=== PATIENT | female | born 1940 | race Caucasian/White ===

== ENCOUNTER 2018-04-27 13:59 | Emergency (ER) | payer MEDICARE, MEDICAID ==
[2018-04-27 14:13] VITALS: TEMP 97.5
--- NOTE | 2018-04-27 14:58 | C.PDOC ---
History Of Present Illness 77 y/o female presents to the ED for evaluation s/p fall sustained just prior to arrival. Patient states she accidentally tripped and fell, landing on her right side. She is now complaining of right hip and right shoulder pain. Patient states she uses her cane to ambulate. She was ambulatory at the scene per EMS. Otherwise patient denies any numbness, tingling, focal weakness, chest pain, or SOB. - HPI Time Seen by Provider: 04/27/18 14:15 Chief Complaint (Nursing): Upper Extremity Problem/Injury History Per: Patient History/Exam Limitations: no limitations Onset/Duration Of Symptoms: Mins Injury Occurred (Timing): Just Before Arrival Location Of Injury: Right: Hip, Shoulder Additional History Per: EMS Past Medical History Reviewed: Historical Data, Nursing Documentation, Vital Signs Vital Signs: Last Vital Signs Temp 97.5 F L 04/27/18 14:12 Pulse 83 04/27/18 14:12 Resp BP 155/86 H 04/27/18 14:12 Pulse Ox 96 04/27/18 14:12 - Medical History PMH: HTN, Hypercholesterolemia, Hypothyroidism Family History: States: Unknown Family Hx - Social History Hx Alcohol Use: No Hx Substance Use: No - Immunization History Hx Tetanus Toxoid Vaccination: No Hx Influenza Vaccination: Yes (05/2015) Hx Pneumococcal Vaccination: Yes (05/2015) Review Of Systems Except As Marked, All Systems Reviewed And Found Negative. Cardiovascular: Negative for: Chest Pain Respiratory: Negative for: Shortness of Breath Musculoskeletal: Positive for: Shoulder Pain (right), Leg Pain (right hip pain) Skin: Negative for: Rash, Lesions Neurological: Negative for: Weakness, Numbness, Incoordination Physical Exam - Physical Exam Appears: Non-toxic, No Acute Distress Skin: Warm, Dry, No Rash Head: Atraumatic, Normacephalic Eye(s): bilateral: Normal Inspection, PERRL, EOMI Oral Mucosa: Moist Neck: Normal ROM, No Midline Cervical Tenderness, No Paracervical Tenderness, Supple Chest: Symmetrical, No Deformity, No Tenderness Cardiovascular: Rhythm Regular, No Murmur Respiratory: Normal Breath Sounds, No Rales, No Rhonchi, No Wheezing, Other (NARD) Gastrointestinal/Abdominal: Soft, No Tenderness, No Distention Extremity: Normal ROM (of bilateral hips; Limited full ROM of right shoulder secondary to pain), Capillary Refill (less than 2 sec), No Deformity, No Swelling Pulses: Left Radial: Normal, Right Radial: Normal Neurological/Psych: Oriented x3, Normal Motor, Normal Sensation, Other (Patient ambulatory in the ED, no focal deficits) Gait: Steady ED Course And Treatment O2 Sat by Pulse Oximetry: 96 (RA) Pulse Ox Interpretation: Normal - Other Rad XR R Hip X-Ray: Interpreted by Me Interpretation: (-) acute fracture or dislocation, (+) mild DJD of the hip XR R Humerus X-Ray: Interpreted by Me Interpretation: (-) acute fracture or dislocation XR R Shoulder X-Ray: Interpreted by Me Interpretation: (-) dislocation, signficant DJD of the shoulder - CT Scan/US CT RUE (shoulder) Other Rad Studies (CT/US): Read By Radiologist, Radiology Report Reviewed CT/US Interpretation: Accession No. : [id number]. Patient Name / ID : JULIEN Chawla / [id number]. Exam Date : 04/27/2018 15:27:56 ( Approved ). Study Comment : Sex / Age : F / 77Y. Creator : Carolyn Marrero. Dictator : Samia Cruz MD. Retanned Leather Roller : Pipe Fitter Maintenance : Samia Cruz MD. Approver2 : Report Date : 04/27/2018 15:44:50. My Comment : . Indication: TRAUMA RO FX. Noncontrast CT of the right shoulder. Comparison: Right shoulder radiographs performed 04/27/18. Technique: Noncontrast axial images of the right shoulder. Sagittal coronal reformatted images were generated and reviewed. This CT exam was performed using 1 or more of the falling dose reduction techniques: Automated exposure control, adjustment of the MAA and/or kV according to patient size, and/or use of iterative reconstruction technique. Total exam DLP: 332.65 mGy cm. 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 There is significant associated osteophyte formation involving the humerus. Limited visualization of the lung keane reveals scattered atelectatic changes. Degenerative changes of the included cervical and thoracic spine. Visualized portions of the sternum appear intact. Limited visualization of the aorta demonstrates 4.1 cm AP dimension of the ascending aorta. Atherosclerotic calcifications. Impression: Severe degenerative changes. No acute displaced fracture or dislocation. Evidence of ascending aortic aneurysm measuring approximately 4.1 cm in AP dimension. Medical Decision Making Medical Decision Making: Impression: S/p fall, right shoulder pain, right hip pain Plan: * Right shoulder x-ray * Right humerus x-ray * Right hip x-ray X-rays reviewed, Shoulder x-ray shows significant DJD, no dislocation. CT of the RUE ordered. CT findings discussed with patient. Counseled regarding diagnosis and the need for follow up. Disposition Counseled Patient/Family Regarding: Studies Performed, Diagnosis, Need For Followup, Rx Given - Disposition Referrals: YOUR,PMD [Other] Disposition: HOME/ ROUTINE Disposition Time: 17:18 Condition: IMPROVED Prescriptions: Ibuprofen [Motrin] 400 mg PO QID #30 tab Instructions: Contusion (DC), Sprain (DC) Forms: [place] (Tristanian) Print Language: FRISIAN - Clinical Impression Clinical Impression: Contusion, Shoulder sprain - Scribe Statement The provider has reviewed the documentation as recorded by the Valentin Toney Provider Attestation: All medical record entries made by the Vamsiibkate were at my direction and personally dictated by me. I have reviewed the chart and agree that the record accurately reflects my personal performance of the history, physical exam, medical decision making, and the department course for this patient. I have also personally directed, reviewed, and agree with the discharge instructions and disposition.
--- NOTE | 2018-04-27 15:22 | RAD ---
Date of service: 04/27/2018 PROCEDURE: Radiographs of the Right Shoulder HISTORY: TRAUMA COMPARISON: No prior. FINDINGS: BONES: Normal. No fracture. JOINTS: Severe chronic degenerative changes with virtual absence of the normal glenohumeral joint. Large inferior osteophyte. Findings related to osteochondromatosis/loose bodies also suspected. SOFT TISSUES: Normal. OTHER FINDINGS: None. IMPRESSION: No acute findings related to/ accounting for the clinical presentation. Severe glenohumeral degenerative change.
--- NOTE | 2018-04-27 15:23 | RAD ---
PROCEDURE: Radiographs of the right humerus. HISTORY: TRAUMA COMPARISON: April 27, 2018 right shoulder reported separately FINDINGS: BONES: No visible fracture. SOFT TISSUES: Normal. OTHER FINDINGS: Severe degenerative changes right shoulder. IMPRESSION: No acute findings related to/ accounting for the clinical presentation..
--- NOTE | 2018-04-27 15:24 | RAD ---
Date of service: 04/27/2018 PROCEDURE: Pelvis right hip HISTORY: TRAUMA COMPARISON: None TECHNIQUE: Standard protocol for this study/examination. FINDINGS: There are no osseous abnormalities to suggest fracture. The pelvic ring is intact. Preserved femoral-acetabular relationship. Negative study for protrusio, subluxation or dislocation. Degenerative changes: Severe with virtual absence of normal joint space on the right. Subchondral sclerosis and cyst formation noted. Mild degenerative changes left hip. Incompletely visualized degenerative changes lower lumbar spine. IMPRESSION: No acute findings related to/ accounting for the clinical presentation.
--- NOTE | 2018-04-27 17:12 | CT ---
Indication: TRAUMA RO FX Noncontrast CT of the right shoulder Comparison: Right shoulder radiographs performed 04/27/18 Technique: Noncontrast axial images of the right shoulder. Sagittal coronal reformatted images were generated and reviewed. This CT exam was performed using 1 or more of the falling dose reduction techniques: Automated exposure control, adjustment of the MAA and/or kV according to patient size, and/or use of iterative reconstruction technique. Total exam DLP: 332.65 mGy cm Findings: Severe degenerative changes of the right shoulder with marked glenohumeral joint space narrowing, subchondral sclerosis, and subchondral cysts. There is significant associated osteophyte formation involving the humerus. Limited visualization of the lung keane reveals scattered atelectatic changes. Degenerative changes of the included cervical and thoracic spine. Visualized portions of the sternum appear intact. Limited visualization of the aorta demonstrates 4.1 cm AP dimension of the ascending aorta. Atherosclerotic calcifications. Impression: Severe degenerative changes. No acute displaced fracture or dislocation. Evidence of ascending aortic aneurysm measuring approximately 4.1 cm in AP dimension.
[2018-04-27 17:29] VITALS: BP 148/86; PULSE 80; RESP 18; O2SAT 97
== END 2018-04-27 17:29 | disposition home or self-care (01) ==
LOC: C.ER 13:59
DX: S40.011A Contusion of right shoulder, initial encounter (principal); S43.401A Unspecified sprain of right shoulder joint, initial encounter; W01.0XXA Fall on same level from slipping, tripping and stumbling without subsequent striking against object, initial encounter; Y92.9 Unspecified place or not applicable; I10 Essential (primary) hypertension; E78.00 Pure hypercholesterolemia, unspecified; E03.9 Hypothyroidism, unspecified